=== PATIENT | female | born 1995 | race Two or more races ===

== ENCOUNTER 2020-08-17 12:02 | Outpatient (REF) | payer OTHER, SELFPAY ==
[2020-08-17 13:04] LABS: COVID-19 Test Negative (Negative)
== END 2020-08-17 12:03 | disposition home or self-care (01) ==
LOC: HO.EMPCOV 12:02
PROVIDERS: Visit Provider Internal Medicine
DX: Z20.828 Contact with and (suspected) exposure to other viral communicable diseases (principal)
CPT/HCPCS: 87635; C9803

== ENCOUNTER 2020-08-24 07:55 | Outpatient (REF) | payer OTHER, SELFPAY ==
[2020-08-24 09:27] LABS: COVID-19 Test Negative (Negative)
== END 2020-08-24 07:56 | disposition home or self-care (01) ==
LOC: HO.EMPCOV 07:55
PROVIDERS: Visit Provider Internal Medicine
DX: Z20.828 Contact with and (suspected) exposure to other viral communicable diseases (principal)
CPT/HCPCS: 87635; C9803

== ENCOUNTER 2020-11-04 12:07 | Outpatient (REF) | payer OTHER, SELFPAY ==
[2020-11-04 12:26] LABS: COVID-19 Test Negative (Negative)
== END 2020-11-04 12:08 | disposition home or self-care (01) ==
LOC: HO.EMPCOV 12:07
PROVIDERS: Visit Provider Internal Medicine
DX: Z20.822 Contact with and (suspected) exposure to COVID-19 (principal)
CPT/HCPCS: 36415; 87635; C9803

== ENCOUNTER 2020-11-10 08:01 | Outpatient (REF) | payer OTHER, SELFPAY ==
[2020-11-10 08:45] LABS: COVID-19 Test Negative (Negative)
== END 2020-11-10 08:02 | disposition home or self-care (01) ==
LOC: HO.EMPCOV 08:01
PROVIDERS: Visit Provider Internal Medicine
DX: Z20.822 Contact with and (suspected) exposure to COVID-19 (principal)
CPT/HCPCS: 36415; 87635; C9803

== ENCOUNTER 2021-01-12 13:46 | Outpatient (REF) | payer OTHER, SELFPAY ==
[2021-01-12 14:07] LABS: COVID-19 Test Negative (Negative)
== END 2021-01-12 13:47 | disposition home or self-care (01) ==
LOC: HO.EMPCOV 13:46
PROVIDERS: Visit Provider Internal Medicine
DX: Z20.822 Contact with and (suspected) exposure to COVID-19 (principal)
CPT/HCPCS: 36415; 87635; C9803